=== PATIENT | female | born 1995 | race African-American/Black ===

== ENCOUNTER 2017-03-21 20:11 | Emergency (ER) | payer MEDICAID ==
[~2017-03-21] VITALS: Ht 160 cm; Wt 59.0 kg
[2017-03-21 20:20] VITALS: BP 123/87
[2017-03-22 01:05] LABS: Basophils # (auto) 0 uL; Basophils % (auto) 0.7 % (0.0-2.0); Eosinophils # (auto) 0.2 uL; Eosinophils % (auto) 4.6 % (0.0-7.0); Hemoglobin 12.1 g/dL (12.2-16.2); Lymphocytes % (auto) 36.4 % (10.0-50.0); Mean Corpuscular Hemoglobin 29.1 pg (28.0-32.0); Mean Corpuscular Hgb Conc. 33.5 g/dL (32.0-36.0); Mean Corpuscular Volume 86.8 fL (80.0-100.0); Mean Platelet Volume 9.8 fL (6.9-10.8); Monocytes # (auto) 0.7 uL; Monocytes % (auto) 12.9 % (0.0-12.0); Neutrophils # (auto) 2.4 uL; Neutrophils % (auto) 45.4 % (37.0-80.0); Nucleated Red Blood Cells % 0.1 %; Platelet Count (auto) 238 10^3/uL (140-450); Red Cell Distribution Width 13.4 % (11.8-14.3); White Blood Cell 5.4 10^3/uL (4.4-10.8)
[2017-03-22] MEDS ORDERED: cefTRIAXone SOD 1,000 MG VL IM ONE (01:30)
[2017-03-22] MEDS ORDERED: IBUPROFEN 600 MG TAB PO ONE (01:30)
[2017-03-22 01:33] LABS: Albumin 3.1 g/dL (3.4-5.0); BUN/Creatinine Ratio 10.9; Calcium 8.3 mg/dL (8.5-10.1)
[2017-03-22 01:36] LABS: Bilirubin, Total 0.3 mg/dL (0.2-1.0); Total Protein 7.8 g/dL (6.4-8.2)
== END 2017-03-22 01:50 | disposition home or self-care (01) ==
LOC: ER 20:11
DX: L03.314 Cellulitis of groin (principal); L25.9 Unspecified contact dermatitis, unspecified cause; I88.9 Nonspecific lymphadenitis, unspecified
CPT/HCPCS: 36415; 74176; 80053; 85025; 96372; 99285; J0696